=== PATIENT | male | born 1970 ===

== ENCOUNTER 2025-07-08 10:38 | Outpatient (CLI) | payer OTHER, SELFPAY ==
--- NOTE | ~2025-07-08 | XR_ITS ---
EXAMINATION: XR hip RT min 2V, 07/08/2025 10:50 CDT HISTORY: pain in right hip, working out injury 6 weeks ago COMPARISON: No comparisons available. Findings: No acute fracture or malalignment. No significant degenerative changes. Soft tissues unremarkable. Impression: No acute fracture or malalignment. Reviewed, dictated and finalized at location P. Impression: No acute fracture or malalignment.
--- NOTE | ~2025-07-08 | XR_ITS ---
XR lumbar spine 2-3V Indication: other low back pain, working out injury 6 weeks ago Comparison: None Findings: Mild dextroconvex scoliosis. No fracture or subluxation. Moderate loss of disc at L4-5 and L5-S1. Soft tissues unremarkable Impression: No acute abnormality. Reviewed, dictated and finalized at location P. Impression: No acute abnormality.
== END 2025-07-08 10:39 | disposition home or self-care (01) ==
PROVIDERS: PCP Physician Assistant; Visit Provider Physician Assistant
DX: M25.551 Pain in right hip (principal); M54.59 Other low back pain
CPT/HCPCS: 72100; 73502